=== PATIENT | male | born 1985 | race Caucasian/White ===

== ENCOUNTER 2020-03-13 11:18 | Emergency (ER) | payer BC ==
[2020-03-13] MEDS ORDERED: Erythromycin Base 0.5% Ophth Oint 3.5 GM Tube ONE (11:19)
--- NOTE | 2020-03-13 11:29 | EDM.PDOC ---
ED HPI GENERAL MEDICAL PROBLEM - General Stated Complaint: GLUE IN EYE Time Seen by Provider: 03/13/20 11:28 Source of Information: Reports: Patient History Limitations: Reports: No Limitations - History of Present Illness INITIAL COMMENTS - FREE TEXT/NARRATIVE: 34-year-old male who reports that he was repairing a hole and his tire using a plugged and he had put rubber cement on the plug and removed the reaming device and was about to put the plug into the hole and rubber cement blew into his right eye. This occurred approximately 10:15 AM today. He reports that he immediately washed his right eye copiously for about 2 minutes with water and then intermittently washed the eye over the next 5 minutes. He reports continued burning and scraping and scratching type pain and discomfort in his right eye that he rates as a 9/10. His vision does seem to be somewhat blurry to him. There were no other injuries. There was no direct trauma. No nausea or vomiting. No difficulty breathing. No antecedent symptoms. There are no other associated signs or symptoms. There are no other modifying factors. Onset: Today (10:15 AM) Duration: Constant Location: Reports: Face (Right eye) Quality: Reports: Burning, Sharp, Other (Scratching and stinging.) Severity: Moderate (to severe.) Improves with: Reports: Rest Worsens with: Reports: Other (Moving his eye. 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 Surgical history as detailed below.) - Past Surgical History Other Musculoskeletal Surgeries/Procedures:: SURGERY ON THUMB Social & Family History - Tobacco Use Tobacco Use Status *Q: Current Every Day Tobacco User - Alcohol Use Alcohol Use History: Yes Alcohol Use Frequency: Daily (Maybe one a day.) - Living Situation & Occupation Occupation: Employed ED ROS GENERAL - Review of Systems Review Of Systems: See Below Constitutional: Reports: No Symptoms HEENT: Reports: Eye Pain Respiratory: Reports: No Symptoms Cardiovascular: Reports: No Symptoms Endocrine: Reports: No Symptoms GI/Abdominal: Reports: No Symptoms : Reports: No Symptoms Musculoskeletal: Reports: No Symptoms Skin: Reports: No Symptoms Neurological: Reports: No Symptoms Psychiatric: Reports: No Symptoms Hematologic/Lymphatic: Reports: No Symptoms Immunologic: Reports: Other (Last tetanus immunization was less than 5 years ago. He reports it was 2 years ago. He is therefore up-to-date.) ED EXAM GENERAL W FULL EYE - Physical Exam Exam: See Below Exam Limited By: No Limitations General Appearance: Alert, WD/WN, Mild Distress (Appears nontoxic. Appears to be in some discomfort.) Eye Exam: Right Eye: Conjunctival Injection, Other (Right upper lid was flipped and I saw no evidence of foreign body.), Bilateral Eye: EOMI, PERRL Visual Acuity (R) 20/: 30 Visual Acuity (L) 20/: 20 With Correction: No Eyelids: Bilateral: Normal Appearance Conjunctiva & Sclera: Right: Injected, Left: Normal Appearance Cornea Exam: Right: Corneal Abrasion, Examined with Flourescein (Diffuse corneal abrasion pattern), Other (No corneal opacity. No foreign bodies seen on second exam with everting of the upper lid of the right eye), Left: Normal Appearance Extraocular Movements: Bilateral: Intact Pupils: Normal Accommodation Pupillary Size: Bilateral: 3 mm Pupillary Reaction: Bilateral: Brisk Anterior Chamber: Bilateral: Normal Appearance Ears: Normal External Exam, Hearing Grossly Normal Nose: Normal Inspection, Normal Mucosa, No Blood Throat/Mouth: Normal Inspection, Normal Lips, Normal Oropharynx, Normal Voice, No Airway Compromise Head: Atraumatic, Normocephalic Neck: Normal Inspection, Supple, Non-Tender, Full Range of Motion Respiratory/Chest: No Respiratory Distress, Lungs Clear, Normal Breath Sounds, No Accessory Muscle Use, Chest Non-Tender Cardiovascular: Normal Peripheral Pulses, Regular Rate, Rhythm, No Murmur GI/Abdominal: Normal Bowel Sounds, Soft, Non-Tender, No Mass Back Exam: Normal Inspection, Full Range of Motion Extremities: Normal Inspection, Normal Range of Motion, Non-Tender, No Pedal Edema, Normal Capillary Refill Neurological: Alert, Oriented, CN II-XII Intact, Normal Cognition, No Motor/Sensory Deficits Psychiatric: Normal Affect Skin Exam: Warm, Dry, Intact, Normal Color, No Rash Course - Vital Signs Last Recorded V/S: Last Vital Signs Temp 36.9 C 03/13/20 11:30 Pulse 100 03/13/20 11:30 Resp 16 03/13/20 11:30 BP 138/89 03/13/20 11:30 Pulse Ox 100 03/13/20 11:30 - Orders/Labs/Meds Orders: Active Orders 24 hr Category Date Time Status Eye Irrigation [RC] ONETIME Care 03/13/20 11:53 Active Meds: Medications Discontinued Medications Generic Name Dose Route Start Last Admin Trade Name Alexandrq PRN Reason Stop Dose Admin Tetracaine HCl 1 ml 03/13/20 11:52 03/13/20 12:22 Tetracaine 0.5% Steri-Unit Tamy EYERT 03/13/20 11:53 1 ml ASDIRECTED ONE Administration - Re-Assessments/Exams Free Text/Narrative Re-Assessment/Exam: 03/13/20 13:30: Patient's right eye was irrigated with 1 L of normal saline and the eye was examined before this and also after this irrigation. The fluorescein exam was done after the irrigation no foreign body was seen either before or after irrigation. The upper lid of the right eye was everted both before and after the irrigation. He appears to have a mild diffuse corneal abrasion of the right eye. There was no evidence of corneal opacity. I will have him apply erythromycin eye ointment to the right eye 4 times a day for the next 5 days. He should also apply artificial tears to the right eye frequently and in between is to keep his eye lubricated. If he is having persisting problems or concerns, he should follow-up with an french instructor next week. Departure - Departure Time of Disposition: 13:40 Disposition: Home, Self-Care 01 Clinical Impression: Chemical injury of right eye Corneal abrasion Qualifiers: Encounter type: initial encounter Laterality: right Qualified Code(s): S05.01XA - Injury of conjunctiva and corneal abrasion without foreign body, right eye, initial encounter - Discharge Information Prescriptions: Erythromycin Base [Erythromycin 0.5% Ophth Oint] 1 applic EYERT QID 5 Days #1 tube Instructions: Corneal Abrasion, [id number], Chemical Burn of the Eyes, Adult Additional Instructions: I did not see any evidence of foreign body in your right eye. You do appear to have a mild scrape to your right eye and probably a mild chemical burn to your right eye. Apply the erythromycin eye ointment to your right I day for the next 5 days. We have given you the remainder of the erythromycin eye ointment to take home with you and I have sent a prescription electronically to [facility] and you may need to pick that up to finish the 5 days of treatment. You should also apply artificial tears to the right eye frequently during the day for the next few days. Rest. Back to the emergency department for marked increase in pain, unrelenting vomiting, worsening vision or any other concerning sign or symptom. Sepsis Event Note (ED) - Focused Exam Vital Signs: Vital Signs Temp Pulse Resp BP Pulse Ox 03/13/20 11:30 36.9 C 100 16 138/89 100 - My Orders Last 24 Hours: My Active Orders 03/13/20 11:53 Eye Irrigation [RC] ONETIME - Assessment/Plan Last 24 Hours: My Active Orders 03/13/20 11:53 Eye Irrigation [RC] ONETIME
[2020-03-13] MEDS: Tetracaine HCl/PF 0.5% 4 ML Bottle EYERT ONE (12:22)
[2020-03-13 13:52] VITALS: BP 141/92; PULSE 94
== END 2020-03-13 13:48 | disposition home or self-care (01) ==
LOC: FB.ED 11:18
DX: S05.01XA Injury of conjunctiva and corneal abrasion without foreign body, right eye, initial encounter (principal); F17.200 Nicotine dependence, unspecified, uncomplicated; X58.XXXA Exposure to other specified factors, initial encounter
CPT/HCPCS: 99283; A9270-GY

== ENCOUNTER 2021-06-27 15:45 | Emergency (ER) | payer BC ==
[2021-06-27] MEDS ORDERED: Cephalexin 500 MG Cap PO ONE (15:46)
[2021-06-27] MEDS ORDERED: LORazepam 1 MG Tab ONE (15:52)
[2021-06-27] MEDS ORDERED: LORazepam 1 MG Tab PO ONE (15:55)
[2021-06-27] MEDS ORDERED: diphenhydrAMINE 50 MG Cap PO ONE (15:56)
[2021-06-27] MEDS ORDERED: diphenhydrAMINE 50 MG Cap ONE (15:56)
[2021-06-27] MEDS ORDERED: cefTRIAXone 1 GM Vial IM ONE (18:22)
[2021-06-27 18:41] VITALS: BP 121/80; PULSE 86
== END 2021-06-27 18:53 | disposition home or self-care (01) ==
LOC: FB.ED 15:45
DX: F41.9 Anxiety disorder, unspecified (principal); L08.9 Local infection of the skin and subcutaneous tissue, unspecified; D72.829 Elevated white blood cell count, unspecified; F19.90 Other psychoactive substance use, unspecified, uncomplicated; Z88.8 Allergy status to other drugs, medicaments and biological substances
CPT/HCPCS: 36415; 71046; 80053; 84484; 85025; 93005; 93010; 96372; 99283; 99284-25; A9270-GY; J0696

== ENCOUNTER 2021-10-09 23:18 | Emergency (ER) | payer SELFPAY ==
[2021-10-09] MEDS ORDERED: diphenhydrAMINE 50 MG/ML SDV IVPUSH ONE (23:38)
[2021-10-09] MEDS ORDERED: Prochlorperazine 10 MG/2 ML SDV IVPUSH ONE (23:38)
[2021-10-09] MEDS ORDERED: Sodium Chloride 0.9% 1,000 ML IV ONE (23:38)
[2021-10-09] MEDS ORDERED: Sodium Chloride 0.9% 10 ML Syringe FLUSH PRN (23:38)
[2021-10-09 23:58] LABS: ESTIMATED GFR 88 mL/min (>60)
[2021-10-10] MEDS ORDERED: Magnesium Sulfate/Water 50 ML ONE (00:34)
[2021-10-10] MEDS ORDERED: Magnesium Sulfate/Water 2 GM in Premix Bag 1 BAG IV ONE (00:37)
[2021-10-10] MEDS ORDERED: Iopamidol 755 Mg/ML 100 ML Bottle IV ONE (01:36)
[2021-10-10] MEDS ORDERED: Ketorolac 30 MG/ML SDV IVPUSH ONE (02:44)
== END 2021-10-10 08:45 | disposition home or self-care (01) ==
LOC: FB.ED 23:18
DX: R51.9 Headache, unspecified (principal); E83.42 Hypomagnesemia; F19.10 Other psychoactive substance abuse, uncomplicated; Z88.8 Allergy status to other drugs, medicaments and biological substances; Z72.0 Tobacco use
CPT/HCPCS: 36415; 70450; 70496; 70498; 80053; 83735; 85025; 85651; 86140; 93005; 96365; 96375; 99284; J0780; J1200; J1885; J3475; J3490; J7030; Q9967

== ENCOUNTER 2022-12-15 17:52 | Emergency (ER) | payer SELFPAY ==
[2022-12-15] MEDS ORDERED: methylPREDNISolone Sodium Succinate 125 MG/2 ML SDV IM ONE (18:11)
[2022-12-15] MEDS ORDERED: diphenhydrAMINE 50 MG/ML SDV IM ONE (18:11)
[2022-12-15 18:43] VITALS: BP 95/55; PULSE 94
== END 2022-12-15 19:15 | disposition home or self-care (01) ==
LOC: FB.ED 17:52
DX: L23.9 Allergic contact dermatitis, unspecified cause (principal); Z79.899 Other long term (current) drug therapy; Z88.8 Allergy status to other drugs, medicaments and biological substances
CPT/HCPCS: 96372; 99282; J1200; J2930